=== PATIENT | male | born 1960 | race Caucasian/White ===

== ENCOUNTER 2018-01-08 00:03 | Emergency (ER) | payer OTHER ==
[2018-01-08] MEDS: morphine 4 MG/ML VIAL IV (01:03)
[2018-01-08] MEDS: ONDANSETRON 4 MG INJ IV (01:03)
[2018-01-08 01:05] LABS: URINE BLOOD (Dip) POC 3+ (NEGATIVE); URINE GLUCOSE (Dip) POC Negative (NEGATIVE); URINE KETONES (Dip) POC Negative (NEGATIVE); URINE LEUKOCYTE EST (Dip) POC 2+ (NEGATIVE); URINE NITRITE (Dip) POC Negative (NEGATIVE); URINE TOTAL PROTEIN POC 1+ (NEGATIVE)
[2018-01-08 01:44] LABS: ADD MAN DIFF? NO; BASOPHILS % 0.3 % (0.0-2.0); EOSINOPHILS # 0.1 10^3/ul (0.0-0.5); EOSINOPHILS % 0.6 % (0.0-7.0); HEMATOCRIT 37.5 % (42.0-52.0); HEMOGLOBIN 12.3 g/dl (14.0-18.0); LYMPHOCYTES % 10.1 % (15.0-51.0); MEAN CORPUSCULAR HEMOGLOBIN 31.1 pg (29.0-33.0); MEAN CORPUSCULAR HGB CONC 32.8 g/dl (32.0-37.0); MEAN CORPUSCULAR VOLUME 94.9 fl (82.0-101.0); MEAN PLATELET VOLUME 9.7 fl (7.4-10.4); MONOCYTE # 0.9 10^3/ul (0.3-0.9); MONOCYTES % 8.7 % (0.0-11.0); NEUTROPHIL # 8.1 10^3/ul (1.6-7.5); NEUTROPHILS % 79.8 % (39.0-77.0); PLATELET COUNT 201 10^3/UL (140-415); RED BLOOD COUNT 3.95 10^6/ul (4.70-6.10); RED CELL DISTRIBUTION WIDTH 14.1 % (11.5-14.5)
[2018-01-08 01:44] LABS: WHITE BLOOD COUNT 10.2 10^3/ul (4.8-10.8)
[2018-01-08 01:57] LABS: ADD UMIC YES; UR ASCORBIC ACID 20 mg/dL (NEGATIVE); UR BACTERIA MODERATE /HPF (NONE SEEN); UR BILIRUBIN (Dip) NEGATIVE (NEGATIVE); UR BLOOD (Dip) 3+ mg/dL (NEGATIVE); UR BUDDING YEAST MANY /HPF (NONE SEEN); UR CLARITY CLOUDY (CLEAR); UR COLOR YELLOW (YELLOW); UR GLUCOSE (Dip) NEGATIVE (NEGATIVE); UR KETONES (Dip) NEGATIVE (NEGATIVE); UR LEUKOCYTE ESTERASE (Dip) 3+ Leu/ul (NEGATIVE); UR NITRITE (Dip) NEGATIVE (NEGATIVE); UR RBC 24 /HPF (0-5); UR SPECIFIC GRAVITY (Dip) 1.004 (1.003-1.030); UR TOTAL PROTEIN (Dip) 1+ mg/dl (NEGATIVE); UR UROBILINOGEN (Dip) NEGATIVE (NEGATIVE); UR WBC 67 /HPF (0-5)
[2018-01-08 02:04] LABS: ALANINE AMINOTRANSFERASE 29 IU/L (13-69); ALBUMIN/GLOBULIN RATIO 1.05; ALKALINE PHOSPHATASE 130 IU/L (42-121); ANION GAP 16 (8-16); ASPARTATE AMINO TRANSFERASE 20 IU/L (15-46); BILIRUBIN,INDIRECT 0.5 mg/dl (0-1.1); BILIRUBIN,TOTAL 0.5 mg/dl (0.2-1.3); BLOOD UREA NITROGEN 13 mg/dl (7-20); CALCIUM 9.2 mg/dl (8.4-10.2); CARBON DIOXIDE 26 mmol/L (21-31); CHLORIDE 104 mmol/L (97-110); CREATININE 0.42 mg/dl (0.61-1.24); GLUCOSE 148 mg/dl (70-220); LIPASE 233 U/L (23-300); POTASSIUM 3.6 mmol/L (3.5-5.1); SODIUM 142 mmol/L (135-144); TOTAL PROTEIN 7.8 g/dl (6.1-8.1)
[2018-01-08] MEDS: CIPROFLOXACIN 400MG/D5W 200 ML IVPB (02:14)
[2018-01-08 02:16] LABS: B-TYPE NATRIURETIC PEPTIDE 160 PG/ML (0-125); TROPONIN-I 0.036 ng/ml (0.000-0.120)
== END 2018-01-08 04:23 | disposition home or self-care (01) ==
LOC: E/R 00:03
DX: J40 Bronchitis, not specified as acute or chronic (principal); N39.0 Urinary tract infection, site not specified; E11.9 Type 2 diabetes mellitus without complications; I10 Essential (primary) hypertension
CPT/HCPCS: 71045; 80053; 81001; 81003; 83690; 83880; 84484; 85025; 93005; 96374; 96375; 99285-25

== ENCOUNTER 2018-07-20 08:22 | Emergency (ER) | payer OTHER ==
[2018-07-20] MEDS: HYDROmorphONE 1 MG/ML SYG IV (09:16)
[2018-07-20] MEDS: ONDANSETRON 4 MG INJ IV (09:16)
[2018-07-20 09:21] LABS: ADD MAN DIFF? NO
[2018-07-20 09:22] LABS: BASOPHILS % 0.7 % (0.0-2.0); EOSINOPHILS # 0.1 10^3/ul (0.0-0.5); EOSINOPHILS % 2.2 % (0.0-7.0); HEMATOCRIT 39.6 % (42.0-52.0); HEMOGLOBIN 13.4 g/dl (14.0-18.0); LYMPHOCYTES # 1.2 10^3/ul (0.8-2.9); LYMPHOCYTES % 20.5 % (15.0-51.0); MEAN CORPUSCULAR HEMOGLOBIN 31.3 pg (29.0-33.0); MEAN CORPUSCULAR HGB CONC 33.8 g/dl (32.0-37.0); MEAN CORPUSCULAR VOLUME 92.5 fl (82.0-101.0); MEAN PLATELET VOLUME 10.4 fl (7.4-10.4); MONOCYTE # 0.5 10^3/ul (0.3-0.9); MONOCYTES % 7.5 % (0.0-11.0); NEUTROPHIL # 4.1 10^3/ul (1.6-7.5); NEUTROPHILS % 68.1 % (39.0-77.0); PLATELET COUNT 186 10^3/UL (140-415); RED BLOOD COUNT 4.28 10^6/ul (4.70-6.10); RED CELL DISTRIBUTION WIDTH 14.4 % (11.5-14.5)
[2018-07-20 09:47] LABS: ALANINE AMINOTRANSFERASE 34 IU/L (13-69); ALBUMIN 4.1 g/dl (3.3-4.9); ALBUMIN/GLOBULIN RATIO 1.13; ALKALINE PHOSPHATASE 139 IU/L (42-121); ANION GAP 14 (5-13); ASPARTATE AMINO TRANSFERASE 22 IU/L (15-46); BILIRUBIN,INDIRECT 0.5 mg/dl (0-1.1); BILIRUBIN,TOTAL 0.5 mg/dl (0.2-1.3); BLOOD UREA NITROGEN 15 mg/dl (7-20); CALCIUM 9.6 mg/dl (8.4-10.2); CARBON DIOXIDE 23 mmol/L (21-31); CHLORIDE 100 mmol/L (97-110); CREATININE 0.33 mg/dl (0.61-1.24); Estimated GFR > 60 mL/min (>60); GLUCOSE 282 mg/dl (70-220); LIPASE 147 U/L (23-300); POTASSIUM 3.7 mmol/L (3.5-5.1); SODIUM 137 mmol/L (135-144); TOTAL PROTEIN 7.7 g/dl (6.1-8.1)
[2018-07-20] MEDS: SOD CHLORIDE 0.9% 100 ML (11:07)
[2018-07-20] MEDS: IOHEXOL 300MG/ML 150 ML BTL (11:07)
== END 2018-07-20 12:30 | disposition home or self-care (01) ==
LOC: E/R 08:22
DX: R10.84 Generalized abdominal pain (principal); K59.00 Constipation, unspecified; I10 Essential (primary) hypertension; E11.9 Type 2 diabetes mellitus without complications
CPT/HCPCS: 36415; 74177; 80053; 83690; 85025; 96374; 96375; 99285-25

== ENCOUNTER 2018-07-25 09:37 | Emergency (ER) | payer OTHER ==
[2018-07-25] MEDS: ALBUTEROL 0.083% (NEB) 2.5 MG/3 ML AMP HHN (11:00)
[2018-07-25] MEDS: DEXAMETHASONE 4 MG TAB PO (11:34)
== END 2018-07-25 11:38 | disposition home or self-care (01) ==
LOC: FTE 09:37
DX: R05 Cough (principal); I10 Essential (primary) hypertension; E11.9 Type 2 diabetes mellitus without complications
CPT/HCPCS: 71045; 94664; 99283-25

== ENCOUNTER 2018-07-28 01:56 | Inpatient (IN) | payer OTHER ==
[2018-07-28] MEDS: SODIUM CHLORIDE 0.9% 1L BAG IV* (02:25)
[2018-07-28] MEDS: ACETAMINOPHEN 325 MG TAB PO (02:27)
[2018-07-28] MEDS: VANCOMYCIN 1 GM (PMX) 250 ML IVPB (02:27)
[2018-07-28 03:08] LABS: ADD MAN DIFF? NO
[2018-07-28 03:11] LABS: ABNORMAL IP MESSAGE 1; BASOPHILS % 0.3 % (0.0-2.0); HEMATOCRIT 35.5 % (42.0-52.0); HEMOGLOBIN 11.9 g/dl (14.0-18.0); LYMPHOCYTES # 0.3 10^3/ul (0.8-2.9); LYMPHOCYTES % 3.5 % (15.0-51.0); MEAN CORPUSCULAR HEMOGLOBIN 30.7 pg (29.0-33.0); MEAN CORPUSCULAR HGB CONC 33.5 g/dl (32.0-37.0); MEAN CORPUSCULAR VOLUME 91.7 fl (82.0-101.0); MEAN PLATELET VOLUME 10.2 fl (7.4-10.4); MONOCYTE # 0.3 10^3/ul (0.3-0.9); MONOCYTES % 4.1 % (0.0-11.0); NEUTROPHILS % 91.1 % (39.0-77.0); PLATELET COUNT 165 10^3/UL (140-415); POSITIVE DIFF @See below; RED BLOOD COUNT 3.87 10^6/ul (4.70-6.10); RED CELL DISTRIBUTION WIDTH 14.7 % (11.5-14.5)
[2018-07-28 03:11] LABS: WHITE BLOOD COUNT 7.6 10^3/ul (4.8-10.8)
[2018-07-28 03:21] LABS: ADD UMIC YES; UR AMORPHOUS CRYSTAL FEW /HPF (NONE SEEN); UR ASCORBIC ACID NEGATIVE (NEGATIVE); UR BACTERIA FEW /HPF (NONE SEEN); UR BILIRUBIN (Dip) NEGATIVE (NEGATIVE); UR BLOOD (Dip) 1+ mg/dL (NEGATIVE); UR CLARITY SLIGHTLY CLOUDY (CLEAR); UR COLOR YELLOW (YELLOW); UR GLUCOSE (Dip) NEGATIVE (NEGATIVE); UR KETONES (Dip) NEGATIVE (NEGATIVE); UR LEUKOCYTE ESTERASE (Dip) 2+ Leu/ul (NEGATIVE); UR NITRITE (Dip) NEGATIVE (NEGATIVE); UR RBC 3 /HPF (0-5); UR SPECIFIC GRAVITY (Dip) 1.005 (1.003-1.030); UR TOTAL PROTEIN (Dip) NEGATIVE (NEGATIVE); UR UROBILINOGEN (Dip) NEGATIVE (NEGATIVE); UR WBC 25 /HPF (0-5)
[2018-07-28 03:27] LABS: LACTIC ACID 1.3 mmol/L (0.5-2.0)
[2018-07-28 03:28] LABS: INR 0.87; PROTIME 11.9 Sec (11.9-14.9); PT RATIO 0.9
[2018-07-28 03:29] LABS: PARTIAL THROMBOPLASTIN TIME 38.1 Sec (23.0-35.0)
[2018-07-28 03:30] LABS: ALANINE AMINOTRANSFERASE 37 IU/L (13-69); ALBUMIN 3.7 g/dl (3.3-4.9); ALBUMIN/GLOBULIN RATIO 1.08; ALKALINE PHOSPHATASE 92 IU/L (42-121); ANION GAP 13 (5-13); ASPARTATE AMINO TRANSFERASE 32 IU/L (15-46); BILIRUBIN,INDIRECT 0.6 mg/dl (0-1.1); BILIRUBIN,TOTAL 0.6 mg/dl (0.2-1.3); BLOOD UREA NITROGEN 15 mg/dl (7-20); CALCIUM 8.8 mg/dl (8.4-10.2); CARBON DIOXIDE 24 mmol/L (21-31); CHLORIDE 90 mmol/L (97-110); CREATININE 0.46 mg/dl (0.61-1.24); Estimated GFR > 60 mL/min (>60); GLUCOSE 186 mg/dl (70-220); LIPASE 826 U/L (23-300); SODIUM 127 mmol/L (135-144); TOTAL PROTEIN 7.1 g/dl (6.1-8.1)
[2018-07-28 03:41] LABS: TROPONIN-I < 0.012 ng/ml (0.000-0.120)
[2018-07-28 03:57] LABS: AADO2 Arterial 64.1 mmHg (7.0-24.0); Allen Test ACCEPTAB; Arterial Base Excess -0.1 mmol/L (-3.0-3); Arterial Blood Gas Oxygen Sat 95.2 mmHG (95.0-98.0); Arterial COHb 0.3 % (0.0-3.0); Arterial Fraction of Oxyhgb 94.6 % (93.0-99.0); Arterial HCO3 24.3 mmol/L (22.0-26.0); Arterial MetHb 0.3 % (0.0-1.5); Arterial pCO2 39.1 mmhg (35-45); MODE NASAL CANNULA; Site Right Radial
[2018-07-28] MEDS: AZTREONAM 1 GM/NS (PMX) 50 ML IVPB (04:45)
[2018-07-28] MEDS ORDERED: NAPROXEN 500 MG TAB PO (05:00)
[2018-07-28] MEDS ORDERED: HYDROCODONE/APAP (5/325) TAB PO (05:00)
[2018-07-28] MEDS ORDERED: ONDANSETRON 4 MG INJ IV (05:00)
[2018-07-28] MEDS ORDERED: NACL 0.9% 3 ML SYG IV (05:00)
[2018-07-28] MEDS: ALBUTEROL 0.083% (NEB) 2.5 MG/3 ML AMP NEB ×3 (05:04→19:54)
[2018-07-28] MEDS: IPRATROPIUM (NEB) 0.5 MG/2.5 ML AMP NEB (05:04)
[2018-07-28 06:08] LABS: LACTIC ACID 0.8 mmol/L (0.5-2.0)
[2018-07-28] MEDS: SOD CHLORIDE 0.9% 1,000 ML IV ×3 (06:15→16:58)
[2018-07-28 08:20] LABS: LACTIC ACID 0.7 mmol/L (0.5-2.0)
[2018-07-28 08:36] LABS: OSMOLALITY 274 mOsm/kg (280-295)
[2018-07-28] MEDS: FLUTICASONE 0.05% 16 GM NAS SPRAY NASAL ×2 (09:20→20:50)
[2018-07-28] MEDS: BACLOFEN 10 MG TAB PO ×3 (09:20→20:48)
[2018-07-28] MEDS: ASCORBIC ACID 500 MG TAB PO (09:20)
[2018-07-28] MEDS: HEPARIN 5,000 UNIT/1 ML VIAL SC ×2 (09:21→20:49)
[2018-07-28 09:23] LABS: SODIUM,URINE RANDOM 17 mmol/L (30-90)
[2018-07-28 09:23] LABS: POTASSIUM,URINE RANDOM 18.7 mmol/L (25-125)
[2018-07-28 09:37] LABS: OSMOLALITY,URINE 198 mOsm/kg (250-1200)
[2018-07-28] MEDS ORDERED: PENDING SANTYL ORDER FOR WOUND CARE XX (11:00)
[2018-07-28] MEDS: ALBUTEROL HFA 8 GM INHALER INH (11:09)
[2018-07-28 13:01] LABS: OCCULT BLOOD STOOL NEGATIVE (NEGATIVE)
[2018-07-28] MEDS: LEVOFLOXACIN 500MG/D5W (PMX) 100 ML IVPB (14:23)
[2018-07-28] MEDS: ACETYLCYSTEINE 20% 4 ML VIAL NEB ×2 (14:25→19:54)
[2018-07-28] MEDS ORDERED: ATORVASTATIN 40 MG TAB (19:50)
[2018-07-28] MEDS: ZOLPIDEM 5 MG TAB PO (20:48)
[2018-07-28] MEDS: ATORVASTATIN 40 MG TAB PO (20:48)
[2018-07-28] MEDS ORDERED: COLLAGENASE 5 GM (UD JAR) TOP (21:29)
[2018-07-29] MEDS: ALBUTEROL 0.083% (NEB) 2.5 MG/3 ML AMP NEB ×6 (02:01→19:20)
[2018-07-29] MEDS: ACETYLCYSTEINE 20% 4 ML VIAL NEB ×4 (02:01→19:20)
[2018-07-29] MEDS: ACETAMINOPHEN 325 MG TAB PO ×2 (03:28→21:37)
[2018-07-29] MEDS: SOD CHLORIDE 0.9% 1,000 ML IV (04:33)
[2018-07-29 05:56] LABS: ADD MAN DIFF? NO
[2018-07-29 06:02] LABS: WHITE BLOOD COUNT 7.6 10^3/ul (4.8-10.8)
[2018-07-29 06:02] LABS: ABNORMAL IP MESSAGE 1; BASOPHILS % 0.4 % (0.0-2.0); HEMATOCRIT 35.1 % (42.0-52.0); HEMOGLOBIN 11.2 g/dl (14.0-18.0); LYMPHOCYTES # 0.3 10^3/ul (0.8-2.9); MEAN CORPUSCULAR HEMOGLOBIN 30.8 pg (29.0-33.0); MEAN CORPUSCULAR HGB CONC 31.9 g/dl (32.0-37.0); MEAN CORPUSCULAR VOLUME 96.4 fl (82.0-101.0); MEAN PLATELET VOLUME 10.2 fl (7.4-10.4); MONOCYTE # 0.6 10^3/ul (0.3-0.9); MONOCYTES % 7.3 % (0.0-11.0); NEUTROPHIL # 6.6 10^3/ul (1.6-7.5); NEUTROPHILS % 87.5 % (39.0-77.0); PLATELET COUNT 149 10^3/UL (140-415); POSITIVE DIFF @See below; RED BLOOD COUNT 3.64 10^6/ul (4.70-6.10); RED CELL DISTRIBUTION WIDTH 14.9 % (11.5-14.5)
[2018-07-29 06:18] LABS: LIPASE 286 U/L (23-300)
[2018-07-29 06:31] LABS: ALANINE AMINOTRANSFERASE 30 IU/L (13-69); ALBUMIN 3.3 g/dl (3.3-4.9); ALBUMIN/GLOBULIN RATIO 1.06; ALKALINE PHOSPHATASE 77 IU/L (42-121); ANION GAP 13 (5-13); ASPARTATE AMINO TRANSFERASE 31 IU/L (15-46); BILIRUBIN,INDIRECT 0.4 mg/dl (0-1.1); BILIRUBIN,TOTAL 0.4 mg/dl (0.2-1.3); BLOOD UREA NITROGEN 7 mg/dl (7-20); CALCIUM 8.1 mg/dl (8.4-10.2); CARBON DIOXIDE 25 mmol/L (21-31); CHLORIDE 97 mmol/L (97-110); CHOL/HDL RATIO 3.9 RATIO; CHOLESTEROL 122 mg/dl (100-200); CREATININE 0.31 mg/dl (0.61-1.24); Estimated GFR > 60 mL/min (>60); GLUCOSE 138 mg/dl (70-220); HDL CHOLESTEROL 31 mg/dl (28-71); LDL CHOLESTEROL,CALCULATED 41 mg/dl; MAGNESIUM 1.4 mg/dl (1.7-2.5); PHOSPHORUS 3.7 mg/dl (2.5-4.9); POTASSIUM 3.1 mmol/L (3.5-5.1); SODIUM 135 mmol/L (135-144); TOTAL PROTEIN 6.4 g/dl (6.1-8.1); TRIGLYCERIDES 252 mg/dl (0-149)
[2018-07-29 07:20] LABS: HEMOGLOBIN A1C 6.8 % (0-5.9)
[2018-07-29] MEDS: POTASSIUM CHLORIDE (SR) 20 MEQ TAB PO (09:14)
[2018-07-29] MEDS: ASCORBIC ACID 500 MG TAB PO (09:14)
[2018-07-29] MEDS: FLUTICASONE 0.05% 16 GM NAS SPRAY NASAL ×2 (09:14→21:31)
[2018-07-29] MEDS: BACLOFEN 10 MG TAB PO ×3 (09:14→21:32)
[2018-07-29] MEDS: HEPARIN 5,000 UNIT/1 ML VIAL SC ×2 (09:15→21:00)
[2018-07-29] MEDS: MAGNESIUM SULFATE 3 GM in DEXTROSE 5% 100 ML IVPB (09:39)
[2018-07-29] MEDS: ALBUTEROL HFA 8 GM INHALER INH ×3 (13:15→21:33)
[2018-07-29] MEDS ORDERED: VANCOMYCIN IV PER PHARMACY XX (14:30)
[2018-07-29] MEDS ORDERED: MAGNESIUM SULFATE 4 GM/100 ML 100 ML IVPB (14:30)
[2018-07-29] MEDS: VANCOMYCIN HCL 1.5 GM in SOD CHLORIDE 0.9% 250 ML IVPB (16:25)
[2018-07-29] MEDS: INSULIN ASPART [NOVOLOG] 3 ML PEN SC ×2 (17:36→21:00)
[2018-07-29] MEDS: PIPER-TAZO 3.375 GM IV (PMX) 100 ML IVPB (20:24)
[2018-07-29] MEDS: ATORVASTATIN 40 MG TAB PO (21:32)
[2018-07-29] MEDS: ZOLPIDEM 5 MG TAB PO (22:47)
[2018-07-30] MEDS: ALBUTEROL 0.083% (NEB) 2.5 MG/3 ML AMP NEB ×4 (01:04→19:33)
[2018-07-30] MEDS: ACETYLCYSTEINE 20% 4 ML VIAL NEB ×4 (01:04→19:33)
[2018-07-30] MEDS: ALBUTEROL HFA 8 GM INHALER INH ×4 (01:40→21:53)
[2018-07-30] MEDS: PIPER-TAZO 3.375 GM IV (PMX) 100 ML IVPB ×3 (01:40→17:39)
[2018-07-30] MEDS: VANCOMYCIN HCL 1.25 GM in SOD CHLORIDE 0.9% 250 ML IVPB ×2 (06:15→21:38)
[2018-07-30 07:51] LABS: ADD MAN DIFF? NO
[2018-07-30 07:53] LABS: ABNORMAL IP MESSAGE 1; BASOPHILS % 0.3 % (0.0-2.0); HEMATOCRIT 32.3 % (42.0-52.0); HEMOGLOBIN 10.7 g/dl (14.0-18.0); LYMPHOCYTES # 0.4 10^3/ul (0.8-2.9); LYMPHOCYTES % 5.5 % (15.0-51.0); MEAN CORPUSCULAR HEMOGLOBIN 30.7 pg (29.0-33.0); MEAN CORPUSCULAR HGB CONC 33.1 g/dl (32.0-37.0); MEAN CORPUSCULAR VOLUME 92.8 fl (82.0-101.0); MEAN PLATELET VOLUME 9.5 fl (7.4-10.4); MONOCYTE # 0.5 10^3/ul (0.3-0.9); MONOCYTES % 7.3 % (0.0-11.0); NEUTROPHIL # 6.3 10^3/ul (1.6-7.5); NEUTROPHILS % 86.4 % (39.0-77.0); PLATELET COUNT 143 10^3/UL (140-415); POSITIVE DIFF @See below; RED BLOOD COUNT 3.48 10^6/ul (4.70-6.10); RED CELL DISTRIBUTION WIDTH 14.4 % (11.5-14.5)
[2018-07-30 07:53] LABS: WHITE BLOOD COUNT 7.3 10^3/ul (4.8-10.8)
[2018-07-30] MEDS: INSULIN ASPART [NOVOLOG] 3 ML PEN SC ×4 (08:00→20:45)
[2018-07-30 08:15] LABS: ANION GAP 7 (5-13); BLOOD UREA NITROGEN 6 mg/dl (7-20); CALCIUM 8.3 mg/dl (8.4-10.2); CARBON DIOXIDE 29 mmol/L (21-31); CHLORIDE 99 mmol/L (97-110); CREATININE 0.28 mg/dl (0.61-1.24); Estimated GFR > 60 mL/min (>60); GLUCOSE 119 mg/dl (70-220); MAGNESIUM 1.8 mg/dl (1.7-2.5); POTASSIUM 3.7 mmol/L (3.5-5.1); SODIUM 135 mmol/L (135-144)
[2018-07-30] MEDS: BACLOFEN 10 MG TAB PO ×3 (08:55→20:42)
[2018-07-30] MEDS: ASCORBIC ACID 500 MG TAB PO (08:55)
[2018-07-30] MEDS: HEPARIN 5,000 UNIT/1 ML VIAL SC ×2 (08:55→20:46)
[2018-07-30] MEDS: FLUTICASONE 0.05% 16 GM NAS SPRAY NASAL ×2 (08:56→20:41)
[2018-07-30] MEDS: COLLAGENASE 5 GM (UD JAR) TOP (08:56)
[2018-07-30] MEDS: ATORVASTATIN 40 MG TAB PO (20:41)
[2018-07-30] MEDS: ZOLPIDEM 5 MG TAB PO (21:53)
[2018-07-31] MEDS: PIPER-TAZO 3.375 GM IV (PMX) 100 ML IVPB ×3 (02:03→21:44)
[2018-07-31] MEDS: ALBUTEROL HFA 8 GM INHALER INH ×4 (02:04→21:44)
[2018-07-31 02:20] LABS: AADO2 Arterial 305.5 mmHg (7.0-24.0); Allen Test ACCEPTAB; Arterial Base Excess 5.3 mmol/L (-3.0-3); Arterial Blood Gas Oxygen Sat 99.3 mmHG (95.0-98.0); Arterial COHb 0.3 % (0.0-3.0); Arterial Fraction of Oxyhgb 98.6 % (93.0-99.0); Arterial MetHb 0.4 % (0.0-1.5); MODE MASK - NRB; Site Left Radial
[2018-07-31] MEDS: ACETYLCYSTEINE 20% 4 ML VIAL NEB ×4 (02:50→19:35)
[2018-07-31] MEDS: ALBUTEROL 0.083% (NEB) 2.5 MG/3 ML AMP NEB ×4 (02:50→19:35)
[2018-07-31 05:15] LABS: AADO2 Arterial 203.9 mmHg (7.0-24.0); Allen Test ACCEPTAB; Arterial Base Excess 6.6 mmol/L (-3.0-3); Arterial Blood Gas Oxygen Sat 98.4 mmHG (95.0-98.0); Arterial COHb 0.3 % (0.0-3.0); Arterial Fraction of Oxyhgb 97.8 % (93.0-99.0); Arterial HCO3 34.5 mmol/L (22.0-26.0); Arterial MetHb 0.3 % (0.0-1.5); Arterial pCO2 67.9 mmhg (35-45); Blood Gas IEPAP 15/5; MODE MASK - BIPAP; Site Left Radial
[2018-07-31] MEDS: INSULIN ASPART [NOVOLOG] 3 ML PEN SC ×4 (07:55→20:33)
[2018-07-31 08:59] LABS: ADD MAN DIFF? NO
[2018-07-31 09:00] LABS: BASOPHILS % 0.4 % (0.0-2.0); EOSINOPHILS % 0.6 % (0.0-7.0); HEMOGLOBIN 10.8 g/dl (14.0-18.0); LYMPHOCYTES # 0.8 10^3/ul (0.8-2.9); LYMPHOCYTES % 15.3 % (15.0-51.0); MEAN CORPUSCULAR HGB CONC 32.7 g/dl (32.0-37.0); MEAN CORPUSCULAR VOLUME 91.7 fl (82.0-101.0); MEAN PLATELET VOLUME 9.8 fl (7.4-10.4); MONOCYTE # 0.4 10^3/ul (0.3-0.9); MONOCYTES % 8.8 % (0.0-11.0); NEUTROPHIL # 3.7 10^3/ul (1.6-7.5); NEUTROPHILS % 73.5 % (39.0-77.0); PLATELET COUNT 163 10^3/UL (140-415); RED CELL DISTRIBUTION WIDTH 14.4 % (11.5-14.5)
[2018-07-31 09:31] LABS: ANION GAP 6 (5-13); BLOOD UREA NITROGEN 4 mg/dl (7-20); CALCIUM 8.7 mg/dl (8.4-10.2); CARBON DIOXIDE 33 mmol/L (21-31); CHLORIDE 97 mmol/L (97-110); CREATININE 0.38 mg/dl (0.61-1.24); Estimated GFR > 60 mL/min (>60); GLUCOSE 100 mg/dl (70-220); POTASSIUM 3.3 mmol/L (3.5-5.1); SODIUM 136 mmol/L (135-144)
[2018-07-31 10:22] LABS: Allen Test ACCEPTAB; Arterial Base Excess 2.4 mmol/L (-3.0-3); Arterial Blood Gas Oxygen Sat 97.1 mmHG (95.0-98.0); Arterial COHb 0.3 % (0.0-3.0); Arterial Fraction of Oxyhgb 96.3 % (93.0-99.0); Arterial HCO3 28.3 mmol/L (22.0-26.0); Arterial MetHb 0.5 % (0.0-1.5); Arterial pCO2 49.2 mmhg (35-45); Blood Gas IEPAP 15/5; Blood Gas PS 10; MODE MASK - BIPAP; Site Right Radial
[2018-07-31] MEDS: BACLOFEN 10 MG TAB PO ×3 (10:54→20:15)
[2018-07-31] MEDS: COLLAGENASE 5 GM (UD JAR) TOP (10:55)
[2018-07-31] MEDS: FLUTICASONE 0.05% 16 GM NAS SPRAY NASAL ×2 (10:55→20:16)
[2018-07-31] MEDS: ASCORBIC ACID 500 MG TAB PO (10:55)
[2018-07-31] MEDS: HEPARIN 5,000 UNIT/1 ML VIAL SC ×2 (11:03→20:33)
[2018-07-31] MEDS: VANCOMYCIN HCL 1.25 GM in SOD CHLORIDE 0.9% 250 ML IVPB ×2 (13:33→18:11)
[2018-07-31] MEDS: metFORMIN 500 MG TAB PO (13:39)
[2018-07-31] MEDS: POTASSIUM CHLORIDE 100 ML IVPB (16:10)
[2018-07-31] MEDS ORDERED: GLUCAGON 1 MG INJ IM (17:30)
[2018-07-31] MEDS ORDERED: GLUCOSE GEL 15 GRAM TUBE BUCCAL (17:30)
[2018-07-31] MEDS ORDERED: GLUCOSE GEL 15 GRAM TUBE PO ×2 (17:30)
[2018-07-31] MEDS ORDERED: DEXTROSE 50% 50 ML SYRINGE IV ×2 (17:30)
[2018-07-31 17:50] LABS: VANCOMYCIN,TROUGH 13.5 ug/ml (10.0-20.0)
[2018-07-31] MEDS: ATORVASTATIN 40 MG TAB PO (20:16)
[2018-07-31] MEDS: ZOLPIDEM 5 MG TAB PO (21:44)
[2018-08-01] MEDS: ACETYLCYSTEINE 20% 4 ML VIAL NEB ×5 (01:01→20:13)
[2018-08-01] MEDS: ALBUTEROL 0.083% (NEB) 2.5 MG/3 ML AMP NEB ×5 (01:01→20:13)
[2018-08-01] MEDS: PIPER-TAZO 3.375 GM IV (PMX) 100 ML IVPB ×4 (03:14→23:00)
[2018-08-01] MEDS: ALBUTEROL HFA 8 GM INHALER INH ×3 (03:14→13:40)
[2018-08-01 06:11] LABS: ADD MAN DIFF? NO
[2018-08-01 06:19] LABS: ABNORMAL IP MESSAGE 1; BASOPHILS % 0.4 % (0.0-2.0); EOSINOPHILS % 0.6 % (0.0-7.0); HEMOGLOBIN 10.8 g/dl (14.0-18.0); LYMPHOCYTES # 0.5 10^3/ul (0.8-2.9); LYMPHOCYTES % 9.3 % (15.0-51.0); MEAN CORPUSCULAR HEMOGLOBIN 30.6 pg (29.0-33.0); MEAN CORPUSCULAR HGB CONC 32.7 g/dl (32.0-37.0); MEAN CORPUSCULAR VOLUME 93.5 fl (82.0-101.0); MEAN PLATELET VOLUME 9.5 fl (7.4-10.4); MONOCYTE # 0.4 10^3/ul (0.3-0.9); MONOCYTES % 8.3 % (0.0-11.0); NEUTROPHILS % 79.4 % (39.0-77.0); PLATELET COUNT 154 10^3/UL (140-415); POSITIVE DIFF @See below; RED BLOOD COUNT 3.53 10^6/ul (4.70-6.10); RED CELL DISTRIBUTION WIDTH 14.5 % (11.5-14.5)
[2018-08-01 06:19] LABS: WHITE BLOOD COUNT 5.1 10^3/ul (4.8-10.8)
[2018-08-01 07:09] LABS: ANION GAP 5 (5-13); BLOOD UREA NITROGEN 6 mg/dl (7-20); CALCIUM 8.5 mg/dl (8.4-10.2); CARBON DIOXIDE 33 mmol/L (21-31); CHLORIDE 104 mmol/L (97-110); Estimated GFR > 60 mL/min (>60); GLUCOSE 119 mg/dl (70-220); POTASSIUM 3.4 mmol/L (3.5-5.1); SODIUM 142 mmol/L (135-144)
[2018-08-01] MEDS: INSULIN ASPART [NOVOLOG] 3 ML PEN SC ×4 (07:55→21:23)
[2018-08-01] MEDS: FLUTICASONE 0.05% 16 GM NAS SPRAY NASAL ×2 (09:39→21:00)
[2018-08-01] MEDS: ASCORBIC ACID 500 MG TAB PO (09:40)
[2018-08-01] MEDS: BACLOFEN 10 MG TAB PO ×3 (09:40→21:20)
[2018-08-01] MEDS: COLLAGENASE 5 GM (UD JAR) TOP (09:40)
[2018-08-01] MEDS: HEPARIN 5,000 UNIT/1 ML VIAL SC ×2 (09:59→21:22)
[2018-08-01] MEDS: metFORMIN 500 MG TAB PO (12:14)
[2018-08-01] MEDS ORDERED: GUAIFENESIN/DM 5ML CUP PO (14:00)
[2018-08-01] MEDS: POTASSIUM CHLORIDE 20 MEQ POWDER FOR ORAL SOLN PO (15:13)
[2018-08-01] MEDS: VANCOMYCIN HCL 1.5 GM in SOD CHLORIDE 0.9% 250 ML IVPB (18:37)
[2018-08-01] MEDS: FAMOTIDINE 20 MG TAB PO (21:20)
[2018-08-01] MEDS: ATORVASTATIN 40 MG TAB PO (21:20)
[2018-08-02] MEDS: ACETYLCYSTEINE 20% 4 ML VIAL NEB ×4 (01:54→19:51)
[2018-08-02] MEDS: ALBUTEROL 0.083% (NEB) 2.5 MG/3 ML AMP NEB ×4 (01:54→19:51)
[2018-08-02] MEDS: PIPER-TAZO 3.375 GM IV (PMX) 100 ML IVPB (06:10)
[2018-08-02 07:35] LABS: ADD MAN DIFF? NO
[2018-08-02 07:37] LABS: WHITE BLOOD COUNT 5.2 10^3/ul (4.8-10.8)
[2018-08-02 07:37] LABS: ABNORMAL IP MESSAGE 1; BASOPHILS % 0.4 % (0.0-2.0); EOSINOPHILS # 0.1 10^3/ul (0.0-0.5); HEMATOCRIT 33.5 % (42.0-52.0); HEMOGLOBIN 10.9 g/dl (14.0-18.0); LYMPHOCYTES # 0.5 10^3/ul (0.8-2.9); LYMPHOCYTES % 9.7 % (15.0-51.0); MEAN CORPUSCULAR HEMOGLOBIN 30.5 pg (29.0-33.0); MEAN CORPUSCULAR HGB CONC 32.5 g/dl (32.0-37.0); MEAN CORPUSCULAR VOLUME 93.8 fl (82.0-101.0); MEAN PLATELET VOLUME 9.4 fl (7.4-10.4); MONOCYTE # 0.5 10^3/ul (0.3-0.9); MONOCYTES % 9.1 % (0.0-11.0); NEUTROPHILS % 78.2 % (39.0-77.0); PLATELET COUNT 178 10^3/UL (140-415); POSITIVE DIFF @See below; RED BLOOD COUNT 3.57 10^6/ul (4.70-6.10); RED CELL DISTRIBUTION WIDTH 14.6 % (11.5-14.5)
[2018-08-02 08:05] LABS: ANION GAP 6 (5-13); BLOOD UREA NITROGEN 5 mg/dl (7-20); CALCIUM 8.6 mg/dl (8.4-10.2); CARBON DIOXIDE 34 mmol/L (21-31); CHLORIDE 101 mmol/L (97-110); CREATININE 0.48 mg/dl (0.61-1.24); Estimated GFR > 60 mL/min (>60); GLUCOSE 124 mg/dl (70-220); MAGNESIUM 1.6 mg/dl (1.7-2.5); PHOSPHORUS 3.4 mg/dl (2.5-4.9); POTASSIUM 3.5 mmol/L (3.5-5.1); SODIUM 141 mmol/L (135-144)
[2018-08-02] MEDS: INSULIN ASPART [NOVOLOG] 3 ML PEN SC ×4 (08:10→20:24)
[2018-08-02] MEDS: HEPARIN 5,000 UNIT/1 ML VIAL SC ×2 (08:13→20:28)
[2018-08-02] MEDS: POTASSIUM CHLORIDE 20 MEQ POWDER FOR ORAL SOLN PO (08:15)
[2018-08-02] MEDS: BACLOFEN 10 MG TAB PO ×3 (08:15→20:27)
[2018-08-02] MEDS: FLUTICASONE 0.05% 16 GM NAS SPRAY NASAL ×3 (08:15→20:44)
[2018-08-02] MEDS: ASCORBIC ACID 500 MG TAB PO (08:15)
[2018-08-02] MEDS: COLLAGENASE 5 GM (UD JAR) TOP (08:16)
[2018-08-02 08:24] LABS: FREE T4 (FREE THYROXINE) 1.81 ng/dl (0.64-1.79)
[2018-08-02 08:36] LABS: THYROID STIMULATING HORMONE 0.677 MIU/L (0.465-4.680)
[2018-08-02] MEDS: metFORMIN 500 MG TAB PO (12:14)
[2018-08-02] MEDS: ERTAPENEM SODIUM 1 GM in SOD CHLORIDE 0.9% 100 ML IVPB (13:08)
[2018-08-02] MEDS: VANCOMYCIN HCL 1.5 GM in SOD CHLORIDE 0.9% 250 ML IVPB (20:25)
[2018-08-02] MEDS: FAMOTIDINE 20 MG TAB PO (20:26)
[2018-08-02] MEDS: ATORVASTATIN 40 MG TAB PO (20:27)
[2018-08-02] MEDS: ACETAMINOPHEN 325 MG TAB PO (20:49)
[2018-08-03] MEDS: ACETYLCYSTEINE 20% 4 ML VIAL NEB ×4 (01:43→20:08)
[2018-08-03] MEDS: ALBUTEROL 0.083% (NEB) 2.5 MG/3 ML AMP NEB ×4 (01:44→20:07)
[2018-08-03] MEDS: ZOLPIDEM 5 MG TAB PO (04:10)
[2018-08-03] MEDS: FLUTICASONE 0.05% 16 GM NAS SPRAY NASAL ×2 (09:00→22:24)
[2018-08-03] MEDS: COLLAGENASE 5 GM (UD JAR) TOP (09:00)
[2018-08-03] MEDS: POTASSIUM CHLORIDE 20 MEQ POWDER FOR ORAL SOLN PO (09:00)
[2018-08-03] MEDS: ASCORBIC ACID 500 MG TAB PO (09:00)
[2018-08-03] MEDS: INSULIN ASPART [NOVOLOG] 3 ML PEN SC ×4 (09:13→21:00)
[2018-08-03] MEDS: BACLOFEN 10 MG TAB PO ×4 (09:15→23:22)
[2018-08-03] MEDS: HEPARIN 5,000 UNIT/1 ML VIAL SC ×2 (09:22→22:27)
[2018-08-03] MEDS: FUROSEMIDE 20 MG INJ IV (09:26)
[2018-08-03 09:52] LABS: AADO2 Arterial 393.1 mmHg (7.0-24.0); Allen Test ACCEPTAB; Arterial Base Excess 7.6 mmol/L (-3.0-3); Arterial Blood Gas Oxygen Sat 97.4 mmHG (95.0-98.0); Arterial COHb 0.3 % (0.0-3.0); Arterial Fraction of Oxyhgb 96.8 % (93.0-99.0); Arterial HCO3 35.1 mmol/L (22.0-26.0); Arterial MetHb 0.3 % (0.0-1.5); Arterial pCO2 64.8 mmhg (35-45); Blood Gas IEPAP 10; Blood Gas PS 10; MODE MASK - BIPAP; Site Left Radial
[2018-08-03 10:37] LABS: D-DIMER 567.43 ng/ml (<460)
[2018-08-03 10:38] LABS: ANION GAP 6 (5-13); BLOOD UREA NITROGEN 5 mg/dl (7-20); CALCIUM 8.9 mg/dl (8.4-10.2); CARBON DIOXIDE 35 mmol/L (21-31); CHLORIDE 100 mmol/L (97-110); CREATINE KINASE 41 IU/L (23-200); CREATININE 0.47 mg/dl (0.61-1.24); Estimated GFR > 60 mL/min (>60); GLUCOSE 111 mg/dl (70-220); MAGNESIUM 1.5 mg/dl (1.7-2.5); POTASSIUM 3.8 mmol/L (3.5-5.1); SODIUM 141 mmol/L (135-144)
[2018-08-03 10:46] LABS: B-TYPE NATRIURETIC PEPTIDE 589 PG/ML (0-125)
[2018-08-03 10:49] LABS: CK INDEX 1.2
[2018-08-03 10:50] LABS: TROPONIN-I < 0.012 ng/ml (0.000-0.120)
[2018-08-03 11:22] LABS: CK-MB 0.49 ng/ml (0.0-2.4)
[2018-08-03] MEDS: metFORMIN 500 MG TAB PO (11:30)
[2018-08-03] MEDS: ERTAPENEM SODIUM 1 GM in SOD CHLORIDE 0.9% 100 ML IVPB (12:41)
[2018-08-03] MEDS: MAGNESIUM SULFATE 2 GM/50 ML 50 ML IVPB (14:48)
[2018-08-03] MEDS: VANCOMYCIN HCL 1.5 GM in SOD CHLORIDE 0.9% 250 ML IVPB (18:22)
[2018-08-03] MEDS: HYDROCODONE/APAP (5/325) TAB PO (18:30)
[2018-08-03] MEDS: ATORVASTATIN 40 MG TAB PO ×2 (21:00→23:23)
[2018-08-03] MEDS: FAMOTIDINE 20 MG TAB PO ×2 (21:00→23:23)
[2018-08-04] MEDS: ALBUTEROL 0.083% (NEB) 2.5 MG/3 ML AMP NEB ×4 (02:08→20:03)
[2018-08-04] MEDS: ACETYLCYSTEINE 20% 4 ML VIAL NEB ×4 (02:08→20:03)
[2018-08-04 06:29] LABS: ADD MAN DIFF? NO
[2018-08-04 06:36] LABS: WHITE BLOOD COUNT 5.1 10^3/ul (4.8-10.8)
[2018-08-04 06:36] LABS: BASOPHILS % 0.6 % (0.0-2.0); EOSINOPHILS % 0.8 % (0.0-7.0); HEMATOCRIT 33.7 % (42.0-52.0); HEMOGLOBIN 10.9 g/dl (14.0-18.0); LYMPHOCYTES # 0.7 10^3/ul (0.8-2.9); LYMPHOCYTES % 12.8 % (15.0-51.0); MEAN CORPUSCULAR HEMOGLOBIN 30.9 pg (29.0-33.0); MEAN CORPUSCULAR HGB CONC 32.3 g/dl (32.0-37.0); MEAN CORPUSCULAR VOLUME 95.5 fl (82.0-101.0); MEAN PLATELET VOLUME 9.6 fl (7.4-10.4); MONOCYTE # 0.5 10^3/ul (0.3-0.9); MONOCYTES % 10.1 % (0.0-11.0); NEUTROPHIL # 3.8 10^3/ul (1.6-7.5); NEUTROPHILS % 74.3 % (39.0-77.0); PLATELET COUNT 184 10^3/UL (140-415); RED BLOOD COUNT 3.53 10^6/ul (4.70-6.10); RED CELL DISTRIBUTION WIDTH 14.7 % (11.5-14.5)
[2018-08-04 07:08] LABS: ANION GAP 11 (5-13); BLOOD UREA NITROGEN 10 mg/dl (7-20); CALCIUM 8.8 mg/dl (8.4-10.2); CARBON DIOXIDE 33 mmol/L (21-31); CHLORIDE 95 mmol/L (97-110); CREATININE 0.45 mg/dl (0.61-1.24); Estimated GFR > 60 mL/min (>60); GLUCOSE 82 mg/dl (70-220); MAGNESIUM 2.1 mg/dl (1.7-2.5); PHOSPHORUS 3.9 mg/dl (2.5-4.9); POTASSIUM 3.5 mmol/L (3.5-5.1); SODIUM 139 mmol/L (135-144)
[2018-08-04] MEDS: INSULIN ASPART [NOVOLOG] 3 ML PEN SC ×4 (08:00→21:00)
[2018-08-04] MEDS: FLUTICASONE 0.05% 16 GM NAS SPRAY NASAL ×2 (08:13→22:34)
[2018-08-04] MEDS: BACLOFEN 10 MG TAB PO ×3 (08:14→22:35)
[2018-08-04] MEDS: ASCORBIC ACID 500 MG TAB PO (08:14)
[2018-08-04] MEDS: COLLAGENASE 5 GM (UD JAR) TOP (08:14)
[2018-08-04] MEDS: POTASSIUM CHLORIDE 20 MEQ POWDER FOR ORAL SOLN PO (08:14)
[2018-08-04] MEDS: HEPARIN 5,000 UNIT/1 ML VIAL SC ×2 (09:09→22:40)
[2018-08-04 09:31] LABS: Allen Test ACCEPTAB; Arterial Base Excess 5.5 mmol/L (-3.0-3); Arterial Blood Gas Oxygen Sat 90.7 mmHG (95.0-98.0); Arterial COHb 0.5 % (0.0-3.0); Arterial Fraction of Oxyhgb 89.9 % (93.0-99.0); Arterial HCO3 30.3 mmol/L (22.0-26.0); Arterial MetHb 0.4 % (0.0-1.5); Arterial pCO2 45.3 mmhg (35-45); MODE NASAL CANNULA; Site Right Radial
[2018-08-04] MEDS: ERTAPENEM SODIUM 1 GM in SOD CHLORIDE 0.9% 100 ML IVPB ×2 (12:00→17:47)
[2018-08-04] MEDS: metFORMIN 500 MG TAB PO (12:34)
[2018-08-04] MEDS: VANCOMYCIN HCL 1.5 GM in SOD CHLORIDE 0.9% 250 ML IVPB (18:46)
[2018-08-04 19:22] LABS: VANCOMYCIN,TROUGH 16.3 ug/ml (10.0-20.0)
[2018-08-04] MEDS: ATORVASTATIN 40 MG TAB PO (22:35)
[2018-08-04] MEDS: FAMOTIDINE 20 MG TAB PO (22:35)
[2018-08-05] MEDS: ACETYLCYSTEINE 20% 4 ML VIAL NEB ×4 (01:35→19:45)
[2018-08-05] MEDS: ALBUTEROL 0.083% (NEB) 2.5 MG/3 ML AMP NEB ×4 (01:35→19:45)
[2018-08-05 06:21] LABS: ADD MAN DIFF? NO
[2018-08-05 06:24] LABS: WHITE BLOOD COUNT 7.3 10^3/ul (4.8-10.8)
[2018-08-05 06:24] LABS: BASOPHILS % 0.4 % (0.0-2.0); EOSINOPHILS % 0.3 % (0.0-7.0); HEMATOCRIT 34.3 % (42.0-52.0); HEMOGLOBIN 10.8 g/dl (14.0-18.0); LYMPHOCYTES # 0.8 10^3/ul (0.8-2.9); LYMPHOCYTES % 11.1 % (15.0-51.0); MEAN CORPUSCULAR HEMOGLOBIN 30.7 pg (29.0-33.0); MEAN CORPUSCULAR HGB CONC 31.5 g/dl (32.0-37.0); MEAN CORPUSCULAR VOLUME 97.4 fl (82.0-101.0); MONOCYTE # 0.8 10^3/ul (0.3-0.9); MONOCYTES % 10.5 % (0.0-11.0); NEUTROPHIL # 5.6 10^3/ul (1.6-7.5); NEUTROPHILS % 76.5 % (39.0-77.0); PLATELET COUNT 171 10^3/UL (140-415); RED BLOOD COUNT 3.52 10^6/ul (4.70-6.10); RED CELL DISTRIBUTION WIDTH 14.6 % (11.5-14.5)
[2018-08-05 06:47] LABS: MAGNESIUM 1.9 mg/dl (1.7-2.5)
[2018-08-05 06:47] LABS: PHOSPHORUS 3.6 mg/dl (2.5-4.9)
[2018-08-05 06:54] LABS: ANION GAP 13 (5-13); BLOOD UREA NITROGEN 13 mg/dl (7-20); CARBON DIOXIDE 31 mmol/L (21-31); CHLORIDE 97 mmol/L (97-110); CREATININE 0.46 mg/dl (0.61-1.24); Estimated GFR > 60 mL/min (>60); GLUCOSE 85 mg/dl (70-220); POTASSIUM 4.1 mmol/L (3.5-5.1); SODIUM 141 mmol/L (135-144)
[2018-08-05] MEDS: POTASSIUM CHLORIDE 20 MEQ POWDER FOR ORAL SOLN PO (09:21)
[2018-08-05] MEDS: COLLAGENASE 5 GM (UD JAR) TOP (09:21)
[2018-08-05] MEDS: FLUTICASONE 0.05% 16 GM NAS SPRAY NASAL ×2 (09:21→21:11)
[2018-08-05] MEDS: BACLOFEN 10 MG TAB PO ×4 (09:21→21:12)
[2018-08-05] MEDS: ASCORBIC ACID 500 MG TAB PO (09:21)
[2018-08-05] MEDS: INSULIN ASPART [NOVOLOG] 3 ML PEN SC ×4 (09:44→21:00)
[2018-08-05] MEDS: HEPARIN 5,000 UNIT/1 ML VIAL SC ×2 (09:44→21:28)
[2018-08-05] MEDS: ERTAPENEM SODIUM 1 GM in SOD CHLORIDE 0.9% 100 ML IVPB (12:00)
[2018-08-05] MEDS: metFORMIN 500 MG TAB PO (13:43)
[2018-08-05] MEDS: FUROSEMIDE 40 MG INJ IV (13:44)
[2018-08-05] MEDS: FLUCONAZOLE 100 MG TAB PO (13:44)
[2018-08-05] MEDS: VANCOMYCIN HCL 1.5 GM in SOD CHLORIDE 0.9% 250 ML IVPB (17:48)
[2018-08-05] MEDS: ATORVASTATIN 40 MG TAB PO ×2 (21:00→21:12)
[2018-08-05] MEDS: FAMOTIDINE 20 MG TAB PO (21:32)
[2018-08-06] MEDS: ALBUTEROL 0.083% (NEB) 2.5 MG/3 ML AMP NEB ×4 (02:45→19:29)
[2018-08-06] MEDS: ACETYLCYSTEINE 20% 4 ML VIAL NEB ×4 (02:45→19:29)
[2018-08-06 06:14] LABS: ADD MAN DIFF? NO
[2018-08-06 06:22] LABS: WHITE BLOOD COUNT 6.9 10^3/ul (4.8-10.8)
[2018-08-06 06:22] LABS: ABNORMAL IP MESSAGE 1; BASOPHILS % 0.3 % (0.0-2.0); EOSINOPHILS % 0.6 % (0.0-7.0); HEMATOCRIT 34.3 % (42.0-52.0); HEMOGLOBIN 10.9 g/dl (14.0-18.0); LYMPHOCYTES # 0.5 10^3/ul (0.8-2.9); LYMPHOCYTES % 6.5 % (15.0-51.0); MEAN CORPUSCULAR HGB CONC 31.8 g/dl (32.0-37.0); MEAN CORPUSCULAR VOLUME 94.5 fl (82.0-101.0); MEAN PLATELET VOLUME 9.9 fl (7.4-10.4); MONOCYTE # 0.4 10^3/ul (0.3-0.9); MONOCYTES % 6.4 % (0.0-11.0); NEUTROPHIL # 5.9 10^3/ul (1.6-7.5); NEUTROPHILS % 84.6 % (39.0-77.0); PLATELET COUNT 200 10^3/UL (140-415); POSITIVE DIFF @See below; RED BLOOD COUNT 3.63 10^6/ul (4.70-6.10); RED CELL DISTRIBUTION WIDTH 14.7 % (11.5-14.5)
[2018-08-06 06:46] LABS: MAGNESIUM 1.6 mg/dl (1.7-2.5)
[2018-08-06 06:46] LABS: PHOSPHORUS 3.4 mg/dl (2.5-4.9)
[2018-08-06 06:49] LABS: ANION GAP 10 (5-13); BLOOD UREA NITROGEN 12 mg/dl (7-20); CALCIUM 9.1 mg/dl (8.4-10.2); CARBON DIOXIDE 34 mmol/L (21-31); CHLORIDE 95 mmol/L (97-110); CREATININE 0.48 mg/dl (0.61-1.24); Estimated GFR > 60 mL/min (>60); GLUCOSE 111 mg/dl (70-220); POTASSIUM 3.8 mmol/L (3.5-5.1); SODIUM 139 mmol/L (135-144)
[2018-08-06] MEDS: INSULIN ASPART [NOVOLOG] 3 ML PEN SC ×4 (08:00→21:00)
[2018-08-06] MEDS: COLLAGENASE 5 GM (UD JAR) TOP (08:03)
[2018-08-06] MEDS: POTASSIUM CHLORIDE 20 MEQ POWDER FOR ORAL SOLN PO (08:04)
[2018-08-06] MEDS: FUROSEMIDE 40 MG INJ IV (08:04)
[2018-08-06] MEDS: BACLOFEN 10 MG TAB PO ×3 (08:05→20:49)
[2018-08-06] MEDS: ASCORBIC ACID 500 MG TAB PO (08:05)
[2018-08-06] MEDS: FLUCONAZOLE 100 MG TAB PO (08:05)
[2018-08-06] MEDS: FLUTICASONE 0.05% 16 GM NAS SPRAY NASAL ×2 (08:06→20:49)
[2018-08-06] MEDS: HEPARIN 5,000 UNIT/1 ML VIAL SC ×2 (08:17→21:01)
[2018-08-06] MEDS: metFORMIN 500 MG TAB PO (12:01)
[2018-08-06] MEDS: ERTAPENEM SODIUM 1 GM in SOD CHLORIDE 0.9% 100 ML IVPB (12:03)
[2018-08-06] MEDS: VANCOMYCIN HCL 1.5 GM in SOD CHLORIDE 0.9% 250 ML IVPB (17:14)
[2018-08-06] MEDS: ATORVASTATIN 40 MG TAB PO (20:49)
[2018-08-06] MEDS: FAMOTIDINE 20 MG TAB PO (20:49)
[2018-08-07] MEDS: ACETYLCYSTEINE 20% 4 ML VIAL NEB ×4 (02:04→20:04)
[2018-08-07] MEDS: ALBUTEROL 0.083% (NEB) 2.5 MG/3 ML AMP NEB ×4 (02:04→20:04)
[2018-08-07 06:09] LABS: ADD MAN DIFF? NO
[2018-08-07 06:15] LABS: ABNORMAL IP MESSAGE 1; BASOPHILS % 0.5 % (0.0-2.0); EOSINOPHILS % 0.2 % (0.0-7.0); HEMATOCRIT 33.6 % (42.0-52.0); HEMOGLOBIN 10.6 g/dl (14.0-18.0); LYMPHOCYTES # 0.6 10^3/ul (0.8-2.9); LYMPHOCYTES % 10.2 % (15.0-51.0); MEAN CORPUSCULAR HEMOGLOBIN 30.5 pg (29.0-33.0); MEAN CORPUSCULAR HGB CONC 31.5 g/dl (32.0-37.0); MEAN CORPUSCULAR VOLUME 96.8 fl (82.0-101.0); MEAN PLATELET VOLUME 10.1 fl (7.4-10.4); MONOCYTE # 0.4 10^3/ul (0.3-0.9); MONOCYTES % 6.2 % (0.0-11.0); NEUTROPHIL # 4.6 10^3/ul (1.6-7.5); NEUTROPHILS % 81.5 % (39.0-77.0); PLATELET COUNT 196 10^3/UL (140-415); POSITIVE DIFF @See below; RED BLOOD COUNT 3.47 10^6/ul (4.70-6.10); RED CELL DISTRIBUTION WIDTH 15.2 % (11.5-14.5)
[2018-08-07 06:15] LABS: WHITE BLOOD COUNT 5.7 10^3/ul (4.8-10.8)
[2018-08-07 06:39] LABS: ANION GAP 11 (5-13); BLOOD UREA NITROGEN 21 mg/dl (7-20); CALCIUM 8.9 mg/dl (8.4-10.2); CARBON DIOXIDE 33 mmol/L (21-31); CHLORIDE 94 mmol/L (97-110); CREATININE 0.59 mg/dl (0.61-1.24); Estimated GFR > 60 mL/min (>60); GLUCOSE 95 mg/dl (70-220); POTASSIUM 4.2 mmol/L (3.5-5.1); SODIUM 138 mmol/L (135-144)
[2018-08-07 06:52] LABS: MAGNESIUM 1.6 mg/dl (1.7-2.5)
[2018-08-07 06:52] LABS: PHOSPHORUS 4.6 mg/dl (2.5-4.9)
[2018-08-07] MEDS: INSULIN ASPART [NOVOLOG] 3 ML PEN SC ×4 (07:35→21:00)
[2018-08-07] MEDS: POTASSIUM CHLORIDE 20 MEQ POWDER FOR ORAL SOLN PO (07:53)
[2018-08-07] MEDS: FLUCONAZOLE 100 MG TAB PO (07:53)
[2018-08-07] MEDS: ASCORBIC ACID 500 MG TAB PO (07:54)
[2018-08-07] MEDS: FUROSEMIDE 40 MG INJ IV (07:54)
[2018-08-07] MEDS: COLLAGENASE 5 GM (UD JAR) TOP (07:54)
[2018-08-07] MEDS: BACLOFEN 10 MG TAB PO ×3 (07:54→20:57)
[2018-08-07] MEDS: FLUTICASONE 0.05% 16 GM NAS SPRAY NASAL ×2 (07:55→21:00)
[2018-08-07] MEDS: HEPARIN 5,000 UNIT/1 ML VIAL SC ×2 (08:05→21:18)
[2018-08-07] MEDS: metFORMIN 500 MG TAB PO (11:54)
[2018-08-07] MEDS: ERTAPENEM SODIUM 1 GM in SOD CHLORIDE 0.9% 100 ML IVPB (11:54)
[2018-08-07] MEDS: BALSAM PERU/CASTOR OIL 60 GM TUBE TOP ×2 (15:02→21:12)
[2018-08-07] MEDS: VANCOMYCIN HCL 1.5 GM in SOD CHLORIDE 0.9% 250 ML IVPB (17:12)
[2018-08-07] MEDS: FAMOTIDINE 20 MG TAB PO (20:58)
[2018-08-07] MEDS: ATORVASTATIN 40 MG TAB PO (20:58)
[2018-08-07] MEDS: hydrOXYzine HCL 25 MG TAB PO (22:51)
[2018-08-08] MEDS: ALBUTEROL 0.083% (NEB) 2.5 MG/3 ML AMP NEB ×4 (01:51→20:06)
[2018-08-08] MEDS: ACETYLCYSTEINE 20% 4 ML VIAL NEB ×4 (01:51→20:07)
[2018-08-08 06:22] LABS: ADD MAN DIFF? NO
[2018-08-08 06:28] LABS: ABNORMAL IP MESSAGE 1; BASOPHILS % 0.5 % (0.0-2.0); EOSINOPHILS # 0.1 10^3/ul (0.0-0.5); EOSINOPHILS % 1.3 % (0.0-7.0); HEMATOCRIT 33.4 % (42.0-52.0); HEMOGLOBIN 10.6 g/dl (14.0-18.0); LYMPHOCYTES # 0.5 10^3/ul (0.8-2.9); LYMPHOCYTES % 12.8 % (15.0-51.0); MEAN CORPUSCULAR HEMOGLOBIN 30.2 pg (29.0-33.0); MEAN CORPUSCULAR HGB CONC 31.7 g/dl (32.0-37.0); MEAN CORPUSCULAR VOLUME 95.2 fl (82.0-101.0); MEAN PLATELET VOLUME 10.1 fl (7.4-10.4); MONOCYTE # 0.4 10^3/ul (0.3-0.9); MONOCYTES % 10.1 % (0.0-11.0); NEUTROPHIL # 2.8 10^3/ul (1.6-7.5); NEUTROPHILS % 73.7 % (39.0-77.0); PLATELET COUNT 205 10^3/UL (140-415); POSITIVE DIFF @See below; RED BLOOD COUNT 3.51 10^6/ul (4.70-6.10); RED CELL DISTRIBUTION WIDTH 14.6 % (11.5-14.5)
[2018-08-08 06:28] LABS: WHITE BLOOD COUNT 3.8 10^3/ul (4.8-10.8)
[2018-08-08 06:43] LABS: ANION GAP 8 (5-13); BLOOD UREA NITROGEN 18 mg/dl (7-20); CALCIUM 9.1 mg/dl (8.4-10.2); CARBON DIOXIDE 34 mmol/L (21-31); CHLORIDE 96 mmol/L (97-110); Estimated GFR > 60 mL/min (>60); GLUCOSE 114 mg/dl (70-220); POTASSIUM 4.1 mmol/L (3.5-5.1); SODIUM 138 mmol/L (135-144)
[2018-08-08 06:47] LABS: MAGNESIUM 1.7 mg/dl (1.7-2.5)
[2018-08-08 06:47] LABS: PHOSPHORUS 3.6 mg/dl (2.5-4.9)
[2018-08-08] MEDS: INSULIN ASPART [NOVOLOG] 3 ML PEN SC ×4 (07:44→22:00)
[2018-08-08] MEDS: COLLAGENASE 5 GM (UD JAR) TOP (08:41)
[2018-08-08] MEDS: POTASSIUM CHLORIDE 20 MEQ POWDER FOR ORAL SOLN PO (08:42)
[2018-08-08] MEDS: BALSAM PERU/CASTOR OIL 60 GM TUBE TOP ×2 (08:43→21:00)
[2018-08-08] MEDS: BACLOFEN 10 MG TAB PO ×3 (08:43→21:56)
[2018-08-08] MEDS: FUROSEMIDE 40 MG INJ IV (08:43)
[2018-08-08] MEDS: ASCORBIC ACID 500 MG TAB PO (08:43)
[2018-08-08] MEDS: FLUCONAZOLE 100 MG TAB PO (08:43)
[2018-08-08] MEDS: FLUTICASONE 0.05% 16 GM NAS SPRAY NASAL ×2 (08:43→21:57)
[2018-08-08] MEDS: metFORMIN 500 MG TAB PO (11:55)
[2018-08-08] MEDS: ERTAPENEM SODIUM 1 GM in SOD CHLORIDE 0.9% 100 ML IVPB (11:57)
[2018-08-08] MEDS: HEPARIN 5,000 UNIT/1 ML VIAL SC ×2 (12:09→21:00)
[2018-08-08 17:05] LABS: AADO2 Arterial 94.9 mmHg (7.0-24.0); Allen Test ACCEPTAB; Arterial Base Excess 6.7 mmol/L (-3.0-3); Arterial COHb 0.3 % (0.0-3.0); Arterial Fraction of Oxyhgb 91.5 % (93.0-99.0); Arterial HCO3 31.4 mmol/L (22.0-26.0); Arterial MetHb 0.2 % (0.0-1.5); Arterial pCO2 45.7 mmhg (35-45); MODE NASAL CANNULA; Site Right Radial
[2018-08-08] MEDS: VANCOMYCIN HCL 1.5 GM in SOD CHLORIDE 0.9% 250 ML IVPB (18:00)
[2018-08-08 18:04] LABS: VANCOMYCIN,TROUGH 28.6 ug/ml (10.0-20.0)
[2018-08-08] MEDS: FAMOTIDINE 20 MG TAB PO (21:56)
[2018-08-08] MEDS: ATORVASTATIN 40 MG TAB PO (21:56)
[2018-08-08] MEDS: hydrOXYzine HCL 25 MG TAB PO (22:14)
[2018-08-09] MEDS: ALBUTEROL 0.083% (NEB) 2.5 MG/3 ML AMP NEB ×4 (02:17→19:12)
[2018-08-09] MEDS: ACETYLCYSTEINE 20% 4 ML VIAL NEB ×4 (02:18→19:12)
[2018-08-09 05:18] LABS: WHITE BLOOD COUNT 3.8 10^3/ul (4.8-10.8)
[2018-08-09 05:18] LABS: HEMATOCRIT 33.1 % (42.0-52.0); HEMOGLOBIN 10.8 g/dl (14.0-18.0); MEAN CORPUSCULAR HEMOGLOBIN 30.8 pg (29.0-33.0); MEAN CORPUSCULAR HGB CONC 32.6 g/dl (32.0-37.0); MEAN CORPUSCULAR VOLUME 94.3 fl (82.0-101.0); PLATELET COUNT 210 10^3/UL (140-415); RED BLOOD COUNT 3.51 10^6/ul (4.70-6.10); RED CELL DISTRIBUTION WIDTH 14.8 % (11.5-14.5)
[2018-08-09 06:01] LABS: PHOSPHORUS 3.7 mg/dl (2.5-4.9)
[2018-08-09 06:01] LABS: MAGNESIUM 1.7 mg/dl (1.7-2.5)
[2018-08-09 06:09] LABS: ANION GAP 8 (5-13); BLOOD UREA NITROGEN 19 mg/dl (7-20); CALCIUM 9.3 mg/dl (8.4-10.2); CARBON DIOXIDE 33 mmol/L (21-31); CHLORIDE 98 mmol/L (97-110); CREATININE 0.77 mg/dl (0.61-1.24); Estimated GFR > 60 mL/min (>60); GLUCOSE 127 mg/dl (70-220); POTASSIUM 4.4 mmol/L (3.5-5.1); SODIUM 139 mmol/L (135-144)
[2018-08-09 06:27] LABS: ADD MAN DIFF? NO
[2018-08-09] MEDS: MAGNESIUM SULFATE 2 GM/50 ML 50 ML IVPB (08:01)
[2018-08-09] MEDS: INSULIN ASPART [NOVOLOG] 3 ML PEN SC ×4 (08:17→20:54)
[2018-08-09] MEDS: POTASSIUM CHLORIDE 20 MEQ POWDER FOR ORAL SOLN PO (08:40)
[2018-08-09] MEDS: COLLAGENASE 5 GM (UD JAR) TOP (08:40)
[2018-08-09] MEDS: BACLOFEN 10 MG TAB PO ×3 (08:41→20:45)
[2018-08-09] MEDS: ASCORBIC ACID 500 MG TAB PO (08:41)
[2018-08-09] MEDS: BALSAM PERU/CASTOR OIL 60 GM TUBE TOP ×2 (08:41→20:46)
[2018-08-09] MEDS: FLUTICASONE 0.05% 16 GM NAS SPRAY NASAL ×2 (08:41→20:56)
[2018-08-09] MEDS: FUROSEMIDE 40 MG INJ IV (08:41)
[2018-08-09] MEDS: FLUCONAZOLE 100 MG TAB PO (08:41)
[2018-08-09] MEDS: HEPARIN 5,000 UNIT/1 ML VIAL SC ×2 (08:55→20:50)
[2018-08-09] MEDS: ERTAPENEM SODIUM 1 GM in SOD CHLORIDE 0.9% 100 ML IVPB (12:08)
[2018-08-09] MEDS: metFORMIN 500 MG TAB PO (12:08)
[2018-08-09] MEDS ORDERED: VANCOMYCIN HCL 1.5 GM in SOD CHLORIDE 0.9% 250 ML IVPB (18:00)
[2018-08-09] MEDS: ATORVASTATIN 40 MG TAB PO (20:44)
[2018-08-09] MEDS: FAMOTIDINE 20 MG TAB PO (20:44)
[2018-08-10] MEDS: ALBUTEROL 0.083% (NEB) 2.5 MG/3 ML AMP NEB ×4 (01:00→20:06)
[2018-08-10] MEDS: ACETYLCYSTEINE 20% 4 ML VIAL NEB ×4 (01:00→20:06)
[2018-08-10 06:09] LABS: ADD MAN DIFF? NO
[2018-08-10 06:14] LABS: WHITE BLOOD COUNT 4.8 10^3/ul (4.8-10.8)
[2018-08-10 06:14] LABS: BASOPHILS % 0.4 % (0.0-2.0); EOSINOPHILS % 0.8 % (0.0-7.0); HEMOGLOBIN 10.3 g/dl (14.0-18.0); LYMPHOCYTES # 0.7 10^3/ul (0.8-2.9); LYMPHOCYTES % 14.3 % (15.0-51.0); MEAN CORPUSCULAR HEMOGLOBIN 30.2 pg (29.0-33.0); MEAN CORPUSCULAR HGB CONC 32.2 g/dl (32.0-37.0); MEAN CORPUSCULAR VOLUME 93.8 fl (82.0-101.0); MEAN PLATELET VOLUME 10.7 fl (7.4-10.4); MONOCYTE # 0.6 10^3/ul (0.3-0.9); MONOCYTES % 13.3 % (0.0-11.0); NEUTROPHIL # 3.4 10^3/ul (1.6-7.5); NEUTROPHILS % 70.8 % (39.0-77.0); PLATELET COUNT 244 10^3/UL (140-415); RED BLOOD COUNT 3.41 10^6/ul (4.70-6.10); RED CELL DISTRIBUTION WIDTH 14.8 % (11.5-14.5)
[2018-08-10 06:49] LABS: MAGNESIUM 2.2 mg/dl (1.7-2.5)
[2018-08-10 06:49] LABS: PHOSPHORUS 4.4 mg/dl (2.5-4.9)
[2018-08-10 06:53] LABS: ANION GAP 10 (5-13); BLOOD UREA NITROGEN 22 mg/dl (7-20); CALCIUM 9.3 mg/dl (8.4-10.2); CARBON DIOXIDE 31 mmol/L (21-31); CHLORIDE 96 mmol/L (97-110); CREATININE 0.84 mg/dl (0.61-1.24); Estimated GFR > 60 mL/min (>60); GLUCOSE 141 mg/dl (70-220); SODIUM 137 mmol/L (135-144)
[2018-08-10] MEDS: INSULIN ASPART [NOVOLOG] 3 ML PEN SC ×4 (08:00→21:00)
[2018-08-10] MEDS: ASCORBIC ACID 500 MG TAB PO (08:17)
[2018-08-10] MEDS: FLUTICASONE 0.05% 16 GM NAS SPRAY NASAL ×2 (08:17→21:02)
[2018-08-10] MEDS: BACLOFEN 10 MG TAB PO ×3 (08:18→21:02)
[2018-08-10] MEDS: FUROSEMIDE 40 MG INJ IV (08:19)
[2018-08-10] MEDS: BALSAM PERU/CASTOR OIL 60 GM TUBE TOP ×2 (08:19→21:03)
[2018-08-10] MEDS: COLLAGENASE 5 GM (UD JAR) TOP (08:19)
[2018-08-10] MEDS: HEPARIN 5,000 UNIT/1 ML VIAL SC ×2 (08:30→21:08)
[2018-08-10] MEDS: POTASSIUM CHLORIDE 20 MEQ POWDER FOR ORAL SOLN PO (08:31)
[2018-08-10] MEDS: metFORMIN 500 MG TAB PO (11:59)
[2018-08-10 19:57] LABS: TROPONIN-I < 0.012 ng/ml (0.000-0.120)
[2018-08-10] MEDS: ATORVASTATIN 40 MG TAB PO (21:01)
[2018-08-10] MEDS: FAMOTIDINE 20 MG TAB PO (21:02)
[2018-08-10] MEDS: hydrOXYzine HCL 25 MG TAB PO (21:34)
[2018-08-11] MEDS: ACETYLCYSTEINE 20% 4 ML VIAL NEB ×4 (02:39→23:11)
[2018-08-11] MEDS: ALBUTEROL 0.083% (NEB) 2.5 MG/3 ML AMP NEB ×4 (02:39→23:05)
[2018-08-11 05:59] LABS: ADD MAN DIFF? NO
[2018-08-11 06:04] LABS: WHITE BLOOD COUNT 4.4 10^3/ul (4.8-10.8)
[2018-08-11 06:04] LABS: BASOPHILS % 0.7 % (0.0-2.0); EOSINOPHILS # 0.1 10^3/ul (0.0-0.5); EOSINOPHILS % 1.6 % (0.0-7.0); HEMATOCRIT 34.3 % (42.0-52.0); LYMPHOCYTES # 0.7 10^3/ul (0.8-2.9); LYMPHOCYTES % 15.8 % (15.0-51.0); MEAN CORPUSCULAR HEMOGLOBIN 30.1 pg (29.0-33.0); MEAN CORPUSCULAR HGB CONC 32.1 g/dl (32.0-37.0); MEAN PLATELET VOLUME 10.4 fl (7.4-10.4); MONOCYTE # 0.6 10^3/ul (0.3-0.9); MONOCYTES % 14.2 % (0.0-11.0); NEUTROPHIL # 2.9 10^3/ul (1.6-7.5); NEUTROPHILS % 66.8 % (39.0-77.0); PLATELET COUNT 262 10^3/UL (140-415); RED BLOOD COUNT 3.65 10^6/ul (4.70-6.10); RED CELL DISTRIBUTION WIDTH 14.9 % (11.5-14.5)
[2018-08-11 06:37] LABS: TROPONIN-I < 0.012 ng/ml (0.000-0.120)
[2018-08-11 06:56] LABS: PHOSPHORUS 4.2 mg/dl (2.5-4.9)
[2018-08-11 06:56] LABS: MAGNESIUM 1.8 mg/dl (1.7-2.5)
[2018-08-11 07:02] LABS: ALANINE AMINOTRANSFERASE 27 IU/L (13-69); ALBUMIN 3.9 g/dl (3.3-4.9); ALKALINE PHOSPHATASE 93 IU/L (42-121); ANION GAP 10 (5-13); ASPARTATE AMINO TRANSFERASE 33 IU/L (15-46); BILIRUBIN,INDIRECT 0.8 mg/dl (0-1.1); BILIRUBIN,TOTAL 0.8 mg/dl (0.2-1.3); BLOOD UREA NITROGEN 27 mg/dl (7-20); CALCIUM 9.4 mg/dl (8.4-10.2); CARBON DIOXIDE 30 mmol/L (21-31); CHLORIDE 96 mmol/L (97-110); CREATININE 0.98 mg/dl (0.61-1.24); Estimated GFR > 60 mL/min (>60); GLUCOSE 187 mg/dl (70-220); POTASSIUM 4.8 mmol/L (3.5-5.1); SODIUM 136 mmol/L (135-144); TOTAL PROTEIN 8.2 g/dl (6.1-8.1)
[2018-08-11] MEDS: INSULIN ASPART [NOVOLOG] 3 ML PEN SC ×4 (08:00→22:44)
[2018-08-11] MEDS: COLLAGENASE 5 GM (UD JAR) TOP (09:34)
[2018-08-11] MEDS: FLUTICASONE 0.05% 16 GM NAS SPRAY NASAL ×2 (09:34→21:00)
[2018-08-11] MEDS: ZINC SULFATE 220 MG CAP PO (09:35)
[2018-08-11] MEDS: MULTIVITAMINS THERAPEUTIC TAB PO (09:35)
[2018-08-11] MEDS: POTASSIUM CHLORIDE 20 MEQ POWDER FOR ORAL SOLN PO (09:35)
[2018-08-11] MEDS: ASCORBIC ACID 500 MG TAB PO (09:35)
[2018-08-11] MEDS: BACLOFEN 10 MG TAB PO ×3 (09:35→23:14)
[2018-08-11] MEDS: FUROSEMIDE 20 MG TAB PO (09:35)
[2018-08-11] MEDS: BALSAM PERU/CASTOR OIL 60 GM TUBE TOP ×2 (09:37→23:16)
[2018-08-11] MEDS: HEPARIN 5,000 UNIT/1 ML VIAL SC ×2 (09:55→23:51)
[2018-08-11] MEDS: metFORMIN 500 MG TAB PO (11:58)
[2018-08-11] MEDS: FUROSEMIDE 40 MG INJ IV ×3 (13:57→23:14)
[2018-08-11] MEDS: ATORVASTATIN 40 MG TAB PO (23:13)
[2018-08-11] MEDS: FAMOTIDINE 20 MG TAB PO (23:13)
[2018-08-12 05:48] LABS: ADD MAN DIFF? NO
[2018-08-12 05:50] LABS: BASOPHILS % 0.9 % (0.0-2.0); EOSINOPHILS # 0.1 10^3/ul (0.0-0.5); EOSINOPHILS % 1.1 % (0.0-7.0); HEMATOCRIT 33.6 % (42.0-52.0); HEMOGLOBIN 10.7 g/dl (14.0-18.0); LYMPHOCYTES # 0.9 10^3/ul (0.8-2.9); LYMPHOCYTES % 18.9 % (15.0-51.0); MEAN CORPUSCULAR HEMOGLOBIN 29.8 pg (29.0-33.0); MEAN CORPUSCULAR HGB CONC 31.8 g/dl (32.0-37.0); MEAN CORPUSCULAR VOLUME 93.6 fl (82.0-101.0); MEAN PLATELET VOLUME 10.7 fl (7.4-10.4); MONOCYTE # 0.7 10^3/ul (0.3-0.9); MONOCYTES % 15.2 % (0.0-11.0); NEUTROPHIL # 2.9 10^3/ul (1.6-7.5); PLATELET COUNT 268 10^3/UL (140-415); RED BLOOD COUNT 3.59 10^6/ul (4.70-6.10); RED CELL DISTRIBUTION WIDTH 14.9 % (11.5-14.5)
[2018-08-12 05:50] LABS: WHITE BLOOD COUNT 4.7 10^3/ul (4.8-10.8)
[2018-08-12 06:37] LABS: BLOOD UREA NITROGEN 31 mg/dl (7-20); CALCIUM 9.3 mg/dl (8.4-10.2); CARBON DIOXIDE 28 mmol/L (21-31); CREATININE 1.42 mg/dl (0.61-1.24); Estimated GFR 52 mL/min (>60); GLUCOSE 137 mg/dl (70-220); PHOSPHORUS 4.9 mg/dl (2.5-4.9); POTASSIUM 5.5 mmol/L (3.5-5.1); SODIUM 137 mmol/L (135-144)
[2018-08-12 06:40] LABS: ANION GAP 10 (5-13); CHLORIDE 99 mmol/L (97-110)
[2018-08-12 07:29] LABS: AADO2 Arterial 77.6 mmHg (7.0-24.0); Allen Test ACCEPTAB; Arterial Base Excess 4.2 mmol/L (-3.0-3); Arterial Blood Gas Oxygen Sat 95.2 mmHG (95.0-98.0); Arterial COHb 0.3 % (0.0-3.0); Arterial Fraction of Oxyhgb 94.6 % (93.0-99.0); Arterial HCO3 29.6 mmol/L (22.0-26.0); Arterial MetHb 0.3 % (0.0-1.5); Arterial pCO2 47.6 mmhg (35-45); MODE NASAL CANNULA; Site Right Radial
[2018-08-12] MEDS: ACETYLCYSTEINE 20% 4 ML VIAL NEB ×2 (07:58→16:07)
[2018-08-12] MEDS: ALBUTEROL 0.083% (NEB) 2.5 MG/3 ML AMP NEB ×2 (07:58→16:06)
[2018-08-12] MEDS: INSULIN ASPART [NOVOLOG] 3 ML PEN SC ×4 (08:21→22:02)
[2018-08-12] MEDS: MULTIVITAMINS THERAPEUTIC TAB PO (08:22)
[2018-08-12] MEDS: BACLOFEN 10 MG TAB PO ×3 (08:22→23:00)
[2018-08-12] MEDS: ASCORBIC ACID 500 MG TAB PO (08:22)
[2018-08-12] MEDS: ZINC SULFATE 220 MG CAP PO (08:22)
[2018-08-12] MEDS: COLLAGENASE 5 GM (UD JAR) TOP (08:23)
[2018-08-12] MEDS: FLUTICASONE 0.05% 16 GM NAS SPRAY NASAL ×2 (08:23→21:00)
[2018-08-12] MEDS: POTASSIUM CHLORIDE 20 MEQ POWDER FOR ORAL SOLN PO (08:24)
[2018-08-12] MEDS: BALSAM PERU/CASTOR OIL 60 GM TUBE TOP ×2 (08:25→23:01)
[2018-08-12] MEDS: HEPARIN 5,000 UNIT/1 ML VIAL SC ×2 (08:26→22:01)
[2018-08-12] MEDS: ALBUTEROL 0.083% (NEB) 2.5 MG/3 ML AMP HHN (20:52)
[2018-08-12] MEDS: ATORVASTATIN 40 MG TAB PO (23:00)
[2018-08-12] MEDS: FAMOTIDINE 20 MG TAB PO (23:00)
[2018-08-13] MEDS: ALBUTEROL/IPRATROPIUM (NEB) 3 ML AMP HHN ×3 (00:22→16:13)
[2018-08-13] MEDS: ACETYLCYSTEINE 20% 4 ML VIAL NEB ×3 (00:22→16:13)
[2018-08-13] MEDS: HYDROCODONE/APAP (5/325) TAB PO (02:37)
[2018-08-13] MEDS: FLUTICASONE 0.05% 16 GM NAS SPRAY NASAL ×2 (09:00→21:00)
[2018-08-13] MEDS: INSULIN ASPART [NOVOLOG] 3 ML PEN SC ×4 (10:06→21:33)
[2018-08-13] MEDS: HEPARIN 5,000 UNIT/1 ML VIAL SC ×2 (10:07→21:32)
[2018-08-13] MEDS: BACLOFEN 10 MG TAB PO ×3 (10:08→21:31)
[2018-08-13] MEDS: ZINC SULFATE 220 MG CAP PO (10:09)
[2018-08-13] MEDS: COLLAGENASE 5 GM (UD JAR) TOP (10:09)
[2018-08-13] MEDS: POTASSIUM CHLORIDE 20 MEQ POWDER FOR ORAL SOLN PO (10:09)
[2018-08-13] MEDS: MULTIVITAMINS THERAPEUTIC TAB PO (10:09)
[2018-08-13] MEDS: ASCORBIC ACID 500 MG TAB PO (10:09)
[2018-08-13] MEDS: BALSAM PERU/CASTOR OIL 60 GM TUBE TOP ×2 (10:10→22:03)
[2018-08-13] MEDS: FAMOTIDINE 20 MG TAB PO (21:31)
[2018-08-13] MEDS: ATORVASTATIN 40 MG TAB PO (21:31)
[2018-08-13] MEDS: ALBUTEROL 0.083% (NEB) 2.5 MG/3 ML AMP HHN (21:33)
[2018-08-13] MEDS: hydrOXYzine HCL 25 MG TAB PO (22:04)
[2018-08-14] MEDS: ACETYLCYSTEINE 20% 4 ML VIAL NEB ×2 (01:54→07:18)
[2018-08-14] MEDS: ALBUTEROL/IPRATROPIUM (NEB) 3 ML AMP HHN ×2 (01:54→07:18)
[2018-08-14] MEDS: POTASSIUM CHLORIDE 20 MEQ POWDER FOR ORAL SOLN PO (08:20)
[2018-08-14] MEDS: ASCORBIC ACID 500 MG TAB PO (08:21)
[2018-08-14] MEDS: ZINC SULFATE 220 MG CAP PO (08:21)
[2018-08-14] MEDS: BACLOFEN 10 MG TAB PO (08:21)
[2018-08-14] MEDS: MULTIVITAMINS THERAPEUTIC TAB PO (08:21)
[2018-08-14] MEDS: HEPARIN 5,000 UNIT/1 ML VIAL SC (08:22)
[2018-08-14] MEDS: INSULIN ASPART [NOVOLOG] 3 ML PEN SC (08:23)
[2018-08-14] MEDS: COLLAGENASE 5 GM (UD JAR) TOP (08:23)
[2018-08-14] MEDS: FLUTICASONE 0.05% 16 GM NAS SPRAY NASAL (08:24)
[2018-08-14] MEDS: BALSAM PERU/CASTOR OIL 60 GM TUBE TOP (08:24)
[2018-08-15 12:01] LABS: PROCALCITONIN 0.25 ng/mL (<0.10)
[2018-08-16] MEDS ORDERED: metFORMIN 500 MG TAB PO (12:00)
== END 2018-08-14 10:30 | disposition home health service (06) | DRG 871 ==
LOC: TEL 07-31 03:24 → 5EC 08-13 08:09 → ICU 08-03 10:05 → E/R 01:56 → 5EC 08-01 14:07 → 6WM 08-03 20:24 → PP2 04:04
PROC: 5A09457 Assistance with Respiratory Ventilation, 24-96 Consecutive Hours, Continuous Positive Airway Pressure (ICD-10-PCS; principal; 2018-07-31)
DX: A41.9 Sepsis, unspecified organism (principal); L89.214 Pressure ulcer of right hip, stage 4; J96.22 Acute and chronic respiratory failure with hypercapnia; J96.21 Acute and chronic respiratory failure with hypoxia; J18.9 Pneumonia, unspecified organism; E87.1 Hypo-osmolality and hyponatremia; G82.20 Paraplegia, unspecified; N39.0 Urinary tract infection, site not specified; Z93.0 Tracheostomy status; N31.9 Neuromuscular dysfunction of bladder, unspecified; R19.7 Diarrhea, unspecified; E11.9 Type 2 diabetes mellitus without complications; I10 Essential (primary) hypertension; E78.5 Hyperlipidemia, unspecified; D63.8 Anemia in other chronic diseases classified elsewhere; N20.0 Calculus of kidney; E03.9 Hypothyroidism, unspecified; B96.20 Unspecified Escherichia coli [E. coli] as the cause of diseases classified elsewhere; L08.89 Other specified local infections of the skin and subcutaneous tissue; B95.62 Methicillin resistant Staphylococcus aureus infection as the cause of diseases classified elsewhere; Y95 Nosocomial condition; Z99.3 Dependence on wheelchair; Z79.4 Long term (current) use of insulin; Z93.3 Colostomy status
CPT/HCPCS: 36415; 36600; 71045; 71250; 74176; 80048; 80053; 80061; 80202; 81001; 82270; 82306; 82436; 82550; 82553; 82803; 82962; 83036; 83605; 83690; 83735; 83880; 83930; 83935; 84100; 84133; 84145; 84300; 84439; 84443; 84480; 84484; 85025; 85378; 85610; 85730; 87040-91; 87070; 87075; 87081; 87086; 87400; 92526; 92610; 93005; 93306; 94640; 94660; 94664; 96374; 99291-25

== ENCOUNTER 2019-01-05 09:40 | Emergency (ER) | payer OTHER ==
[2019-01-05 11:06] LABS: ADD UMIC YES; UR ASCORBIC ACID 20 mg/dL (NEGATIVE); UR BACTERIA FEW /HPF (NONE SEEN); UR BILIRUBIN (Dip) NEGATIVE (NEGATIVE); UR BLOOD (Dip) NEGATIVE (NEGATIVE); UR CLARITY CLOUDY (CLEAR); UR COLOR AMBER (YELLOW); UR GLUCOSE (Dip) NEGATIVE (NEGATIVE); UR KETONES (Dip) NEGATIVE (NEGATIVE); UR LEUKOCYTE ESTERASE (Dip) 2+ Leu/ul (NEGATIVE); UR NITRITE (Dip) NEGATIVE (NEGATIVE); UR RBC 4 /HPF (0-5); UR SPECIFIC GRAVITY (Dip) 1.018 (1.003-1.030); UR TOTAL PROTEIN (Dip) 2+ mg/dl (NEGATIVE); UR UROBILINOGEN (Dip) NEGATIVE (NEGATIVE); UR WBC 27 /HPF (0-5)
== END 2019-01-05 12:42 | disposition home or self-care (01) ==
LOC: FTE 12:42
DX: R51 Headache (principal); N39.0 Urinary tract infection, site not specified; Z79.84 Long term (current) use of oral hypoglycemic drugs
CPT/HCPCS: 70450; 81001; 87086; 99284-25